=== PATIENT | male | born 1970 | race Caucasian/White ===

== ENCOUNTER → 2017-10-17 15:17 | Outpatient (REF) | payer MEDICAID, SELFPAY ==
[2017-10-17 18:13] LABS: Basophils % 0.7 % (0.1-2.0); Eosinophils # 0.3 K/mm3 (0.0-0.4); Eosinophils % 5.5 % (0.1-12.0); Hematocrit 40.2 % (42.0-52.0); Hemoglobin 13.4 g/dL (14.1-18.0); Lymphocytes # 3.2 K/mm3 (0.7-4.5); Lymphocytes % 52.5 K/mm3 (10-50); Mean Corpuscular HGB Conc 33.3 g/dL (31.8-35.4); Mean Corpuscular Hemoglobin 29.5 pg (27.0-31.2); Mean Corpuscular Volume 88.5 fl (80-94); Mean Platelet Volume 7.4 fl (7.4-10.4); Monocytes # 0.4 K/mm3 (0.1-1.0); Monocytes % 6.6 % (1.7-9.3); Neutrophils # 2.1 K/mm3 (1.8-7.8); Neutrophils % 34.7 % (37.0-80.0); Platelet Count 415 K/mm3 (142-424); Red Blood Count 4.54 M/mm3 (4.60-6.20); Red Cell Distribution Width 13.6 % (11.5-17.5); White Blood Count 6.2 K/mm3 (4.8-10.8)
[2017-10-17 18:51] LABS: MANUAL DIFFERENTIAL MANUAL DIFFERENTIAL (MANUAL DIFF)
[2017-10-17 19:10] LABS: Alanine Aminotransferase 35 U/L (12-78); Albumin Level 3.7 gm/dL (3.4-5.0); Albumin/Globulin Ratio 1.2 (1.1-1.8); Alkaline Phosphatase 74 U/L (46-116); Anion Gap 12.4 mEq/L (5-15); Aspartate Amino Transferase 19 U/L (15-37); Bilirubin,Total 0.1 mg/dL (0.2-1.0); Blood Urea Nitrogen 15 mg/dL (7-18); Calcium 9.1 mg/dL (8.5-10.1); Carbon Dioxide 26 mmol/L (21.0-32.0); Chloride 107 mmol/L (98-107); Chol/HDL Ratio 5.3 (1-3.5); Cholesterol 205 mg/dL (140-200); Creatinine,Serum 1.21 mg/dL (0.70-1.30); Estimated Glomerular Filt Rate 64 ml/min (>60); Free T4 (Free Thyroxine) 0.96 ng/dl (0.76-1.46); GFR (African American) 77 ML/MIN (>60); Glucose 148 mg/dL (74-106); HDL Cholesterol 39 mg/dL (27-67); LDL Cholesterol 128 mg/dL (0-130); Potassium 4.4 mmoL/L (3.5-5.1); Sodium 141 mmol/L (136-145); Thyroid Stimulating Hormone 0.56 uIU/ml (0.358-3.740); Total Protein,Serum 6.7 gm/dL (6.4-8.2); Triglycerides 191 mg/dL (30-200); VLDL Cholesterol 38 mg/dL (0-40)
[2017-10-17 19:57] LABS: Eosinophils % 5 % (0-3); Lymphocytes % 62 % (10-50); Monocytes % 1 % (2-9); Neutrophils % 31 % (42-76); Total Cells Counted 100
[2017-10-17 19:58] LABS: Platelet Estimate Slight Increase; RBC Morphology Normal
[2017-10-17 20:34] LABS: Erythrocyte Sedimentation Rate 12 mm/hr (0-15)
== END ==
LOC: LAB 15:17
PROVIDERS: Visit Provider Emergency Medicine
DX: R53.83 Other fatigue (principal)
CPT/HCPCS: 80053; 80061; 84439; 84443; 85007; 85025; 85651